=== PATIENT | male | born 1980 | race American Indian/Alaskan Native ===

== ENCOUNTER 2017-07-19 15:37 | Emergency (ER) | payer OTHER ==
[2017-07-19] MEDS ORDERED: DECADRON IM ONE (17:13)
[2017-07-19] MEDS ORDERED: TORADOL IM ONE (17:13)
--- NOTE | 2017-07-19 17:15 | Emergency Department Report ---
ED Back Pain/Injury HPI - General Chief Complaint: Back Pain/Injury Stated Complaint: BACK PAIN Time Seen by Provider: 07/19/17 17:05 Source: patient Mode of arrival: Ambulatory Limitations: No Limitations - History of Present Illness Initial Comments: Pt began to have R lower back pain radiating down leg after lifting at work last night. Denies trauma. Denies numbness, weakness but reports on and off tingling in R leg with shooting pains. Denies bowel or bladder dysfunction. MD Complaint: back pain -: Gradual, Last night Similar Symptoms Previously: Yes Place: work Radiation: right leg Severity: moderate Consistency: constant Improves With: immobilization Worsens With: movement Context: while lifting Associated Symptoms: denies other symptoms - Related Data Previous Rx's Medication Instructions Recorded Last Taken Type Cyclobenzaprine [Flexeril] 10 mg PO TID PRN #15 tablet 07/19/[address] [Voltaren Dr] 75 mg PO BID #20 tablet 07/19/17 Unknown Rx Allergies Allergy/AdvReac Type Severity Reaction Status Date / Time No Known Allergies Allergy Verified 07/19/17 15:45 ED Review of Systems ROS: Stated complaint: BACK PAIN Other details as noted in HPI Comment: All other systems reviewed and negative Constitutional: denies: chills, fever Eyes: denies: eye pain, eye discharge, vision change ENT: denies: ear pain, throat pain Respiratory: denies: cough, shortness of breath, wheezing Cardiovascular: denies: chest pain, palpitations Endocrine: no symptoms reported Gastrointestinal: denies: abdominal pain, nausea, diarrhea Genitourinary: denies: urgency, dysuria Musculoskeletal: back pain. denies: joint swelling, arthralgia Skin: denies: rash, lesions Neurological: denies: headache, weakness, paresthesias Psychiatric: denies: anxiety, depression Hematological/Lymphatic: denies: easy bleeding, easy bruising ED Back Pain Physical Exam - Exam General: Vital signs noted. No distress. Alert and acting appropriately. Back/Abdomen: Yes Perilumbar Tenderness, Yes Straight Leg Raise Pain (R), No Abdominal Tenderness, No Perithoracic Tenderness, No Sacroiliac Tenderness, No Flank Tenderness Neuro: Yes Normal Sensation, Yes Normal DTR's, Yes Normal Gait, No Motor Weakness ED Course Vital Signs 07/19/17 15:45 Temperature 98.5 F Pulse Rate 94 H Respiratory 16 Rate Blood Pressure 173/93 O2 Sat by Pulse 97 Oximetry - Reevaluation(s) Reevaluation #1: 07/19/17 17:12 Pt stable for d/c. ED Medical Decision Making - Medical Decision Making Pt presents with sciatic pain, no red flag s/sx. Will give Decadron and Toradol IM and have him follow up. Advised to monitor BP. - Differential Diagnosis sciatica, spasms, htn Critical care attestation.: If time is entered above; I have spent that time in minutes in the direct care of this critically ill patient, excluding procedure time. ED Disposition Clinical Impression: Low back pain with right-sided sciatica Qualifiers: Chronicity: acute Back pain laterality: right Qualified Code(s): M54.41 - Lumbago with sciatica, right side Disposition: TO HOME OR SELFCARE Is pt being admited?: No Condition: Good Instructions: Lumbar Radiculopathy (ED) Prescriptions: Cyclobenzaprine [Flexeril] 10 mg PO TID PRN #15 tablet PRN Reason: Muscle Spasm Diclofenac Dr [Voltaren Dr] 75 mg PO BID #20 tablet Referrals: MAGALIE MAYEN MD [Staff Physician] - 3-5 Days Forms: Work/School Release Form(ED) Time of Disposition: 17:14
[2017-07-19 18:04] VITALS: BP 148/86
== END 2017-07-19 18:01 | disposition home or self-care (01) ==
LOC: ED 15:37
DX: M54.41 Lumbago with sciatica, right side (principal)
CPT/HCPCS: 96372; 99282; J1100; J1885

== ENCOUNTER 2020-01-02 10:32 | Emergency (ER) | payer OTHER ==
[2020-01-02 10:50] VITALS: BP 181/110
--- NOTE | 2020-01-02 12:39 | Emergency Department Report ---
Minor Respiratory - HPI Chief Complaint: Upper Respiratory Infection Stated Complaint: SINUS INFECTION Time Seen by Provider: 01/02/20 11:36 Duration: 3 Days Minor Respiratory: Yes Able to Tolerate Fluids, Yes Cough, Yes Fever (2 days ago), No Sore Throat (only with cough) Other History: 39 y/o male comes in for nasal congestion, headache cough and sinus pressure times 3 days. Patient states he had a fever 2 days ago. Tried taking Allergra today which he reports has not helped. ED Review of Systems ROS: Stated complaint: SINUS INFECTION Other details as noted in HPI ED Past Medical Hx - Past Medical History Hx Seizures: Yes - Social History Smoking Status: Never Smoker Substance Use Type: None - Medications Home Medications: Home Medications Medication Instructions Recorded Confirmed Last Taken Type Cyclobenzaprine [Flexeril] 10 mg PO TID PRN #15 tablet 07/19/[address] [Voltaren Dr] 75 mg PO BID #20 tablet 07/19/17 Unknown Rx Fluticasone [Flonase] 1 spray NS QDAY #1 bottle 01/02/20 Unknown Rx cephALEXin [Keflex] 500 mg PO Q12HR 10 Days #20 cap 01/02/20 Unknown Rx Minor Respiratory Exam - Exam General: Vital signs noted. No distress. Alert and acting appropriately. HEENT: Yes Moist Mucous Membranes, Yes Rhinorrhea, Yes Frontal Tenderness, Yes Maxillary Tenderness, No Pharyngeal Erythema, No Pharyngeal Exudates Ear: Neither TM Bulge, Neither TM Erythema, Neither EAC Pain, Neither EAC Discharge Neck: No Adenopathy, No Supple Lungs: Yes Good Air Exchange, No Wheezes, No Ronchi, No Stridor, No Cough, No Labored Respirations, No Retractions, No Use of Accessory Muscles, No Other Abnormal Lung Sounds Heart: Yes Regular, No Murmur Abdomen: Yes Normal Bowel Sounds, No Tenderness, No Peritoneal Signs Neurologic: Alert and oriented, no deficits. Musculoskeletal: Unremarkable. ED Course Vital Signs 01/02/20 10:48 Temperature 99 F Pulse Rate 88 Respiratory 18 Rate Blood Pressure 181/110 O2 Sat by Pulse 99 Oximetry ED Medical Decision Making - Medical Decision Making 39 y/o male comes in for nasal congestion, headache cough and sinus pressure times 3 days. Patient states he had a fever 2 days ago. Tried taking Allergra today which he reports has not helped. Discharge on keflex and flonase for a sinus infection. Referral to PCP. Critical care attestation.: If time is entered above; I have spent that time in minutes in the direct care of this critically ill patient, excluding procedure time. ED Disposition Clinical Impression: Acute sinus infection Disposition: TO HOME OR SELFCARE Is pt being admited?: No Does the pt Need Aspirin: No Condition: Stable Instructions: Sinusitis (ED) Additional Instructions: Complete medication as precribed. Follow up with a Primary Care provider. Prescriptions: Fluticasone [Flonase] 1 spray NS QDAY #1 bottle cephALEXin [Keflex] 500 mg PO Q12HR 10 Days #20 cap Referrals: PRIMARY CARE, [Primary Care Provider] - 3-5 Days [facility] [Provider Group] - 3-5 Days Forms: Work/School Release Form(ED)
== END 2020-01-02 12:49 | disposition home or self-care (01) ==
LOC: ED 10:32
DX: J01.90 Acute sinusitis, unspecified (principal); R56.9 Unspecified convulsions; Z79.899 Other long term (current) drug therapy
CPT/HCPCS: 99282

== ENCOUNTER 2021-03-29 04:12 | Emergency (ER) | payer SELFPAY ==
[2021-03-29 04:18] VITALS: BP 201/113
--- NOTE | 2021-03-29 13:41 | Emergency Department Report ---
Blank Doc - Documentation Documentation: Went to see the patient in his room. Patient eloped.
== END 2021-03-29 13:35 | disposition left against medical advice (07) ==
LOC: ED 04:12
DX: T78.40XA Allergy, unspecified, initial encounter (principal); Z53.21 Procedure and treatment not carried out due to patient leaving prior to being seen by health care provider; X58.XXXA Exposure to other specified factors, initial encounter; Y93.89 Activity, other specified; Y92.89 Other specified places as the place of occurrence of the external cause; Y99.8 Other external cause status

== ENCOUNTER 2021-04-06 03:45 | Emergency (ER) | payer SELFPAY ==
[2021-04-06] MEDS ORDERED: predniSONE 20 MG TAB PO ONE (05:51)
[2021-04-06] MEDS ORDERED: IBUPROFEN 600 MG TAB PO ONE (05:51)
[2021-04-06] MEDS ORDERED: ACETAMINOPHEN 500 MG TAB PO ONE (05:51)
[2021-04-06] MEDS ORDERED: ONDANSETRON 4 MG ODT TAB PO ONE (05:51)
[2021-04-06] MEDS ORDERED: LIDOCAINE VISCOUS 2% 15 ML ORAL LIQD PO ONE (05:51)
--- NOTE | 2021-04-06 06:12 | Emergency Department Report ---
- General Chief Complaint: Sore Throat Stated Complaint: LIGHT HEADED SORE THROAT Source: patient Mode of arrival: Ambulatory Limitations: No Limitations - History of Present Illness Initial Comments: Patient is a 40-year-old -[place] male with a history of seizures who presents to the ED with complaint of acute onset persistent diffuse body aches and pains, nasal and sinus congestion, frontal sinus pressure and headache, subjective fever and chills, persistent sore throat with dysphagia, and lack of appetite with persistent dry cough for the last 3 days, worse in the last 24 hours. Patient states that he has been taking [id number] medications with no relief. Patient states that no one else at home or at work has had similar symptoms but adds that he has been fully vaccinated against COVID-19. Patient denies dizziness, syncope, chest pain, shortness of breath, abdominal pain, nausea, vomiting, diarrhea, dysuria, urinary frequency and urgency or change in vision and neck pain. MD Complaint: fever, cough, sore throat, rhinorrhea, nasal congestion, sinus pain, other (Diffuse body aches and pains) -: Sudden, days(s) (3) Severity: severe Severity scale (0 -10): 8 Quality: sharp, aching Consistency: constant Improves With: nothing Worsens With: nothing Associated Symptoms: denies other symptoms, fever, chills, myalgias, headache, rhinorrhea, nasal congestion, sore throat, cough. denies: diaphoresis, stiff neck, chest pain, shortness of breath, abdominal pain, nausea, vomiting, diarrhea, dysuria, rash, right sweats, weight loss, hoarseness, ear pain, other Treatments Prior to Arrival: "cold medicine" - Related Data Previous Rx's Medication Instructions Recorded Last Taken Type Cyclobenzaprine [Flexeril] 10 mg PO TID PRN #15 tablet 07/19/[address] [Voltaren Dr] 75 mg PO BID #20 tablet 07/19/17 Unknown Rx Fluticasone [Flonase] 1 spray NS QDAY #1 bottle 01/02/20 Unknown Rx cephALEXin [Keflex] 500 mg PO Q12HR 10 Days #20 cap 01/02/20 Unknown Rx Azithromycin [Zithromax Z-ALEXANDRO] 250 mg PO DAILY #6 04/06/21 Unknown Rx Benzonatate [Tessalon Perles] 100 mg PO Q8HR #30 cap 04/06/21 Unknown Rx Cetirizine HCl [Zyrtec 10mg tab] 10 mg PO DAILY #30 04/06/21 Unknown Rx Ibuprofen [Motrin] 800 mg PO Q8HR PRN #30 tablet 04/06/21 Unknown Rx Lidocaine Viscous 2% 10 ml PO Q6H PRN #120 ml 04/06/21 Unknown Rx predniSONE [Deltasone] 40 mg PO QDAY #10 tab 04/06/21 Unknown Rx Allergies Allergy/AdvReac Type Severity Reaction Status Date / Time No Known Allergies Allergy Verified 01/02/20 10:46 ED Review of Systems ROS: Stated complaint: LIGHT HEADED SORE THROAT Other details as noted in HPI Constitutional: chills, fever, malaise, weakness Eyes: denies: eye pain, eye discharge, vision change ENT: throat pain, congestion. denies: ear pain Respiratory: cough. denies: shortness of breath, wheezing Cardiovascular: denies: chest pain, palpitations Endocrine: no symptoms reported Gastrointestinal: denies: abdominal pain, nausea, vomiting, diarrhea Genitourinary: denies: urgency, dysuria Musculoskeletal: denies: back pain, joint swelling, arthralgia Skin: denies: rash, lesions Neurological: headache. denies: weakness, paresthesias Psychiatric: denies: anxiety, depression Hematological/Lymphatic: denies: easy bleeding, easy bruising ED Past Medical Hx - Past Medical History Previous Medical History?: Yes Hx Seizures: Yes - Surgical History Past Surgical History?: No - Social History Smoking Status: Never Smoker Substance Use Type: None - Medications Home Medications: Home Medications Medication Instructions Recorded Confirmed Last Taken Type Cyclobenzaprine [Flexeril] 10 mg PO TID PRN #15 tablet 07/19/[address] [Voltaren Dr] 75 mg PO BID #20 tablet 07/19/17 Unknown Rx Fluticasone [Flonase] 1 spray NS QDAY #1 bottle 01/02/20 Unknown Rx cephALEXin [Keflex] 500 mg PO Q12HR 10 Days #20 cap 01/02/20 Unknown Rx Azithromycin [Zithromax Z-ALEXANDRO] 250 mg PO DAILY #6 04/06/21 Unknown Rx Benzonatate [Tessalon Perles] 100 mg PO Q8HR #30 cap 04/06/21 Unknown Rx Cetirizine HCl [Zyrtec 10mg tab] 10 mg PO DAILY #30 04/06/21 Unknown Rx Ibuprofen [Motrin] 800 mg PO Q8HR PRN #30 tablet 04/06/21 Unknown Rx Lidocaine Viscous 2% 10 ml PO Q6H PRN #120 ml 04/06/21 Unknown Rx predniSONE [Deltasone] 40 mg PO QDAY #10 tab 04/06/21 Unknown Rx ED Physical Exam - General Limitations: No Limitations General appearance: alert, in no apparent distress - Head Head exam: Present: atraumatic, normocephalic, normal inspection - Eye Eye exam: Present: normal appearance, PERRL, EOMI Pupils: Present: normal accommodation - ENT ENT exam: Present: mucous membranes moist, TM's normal bilaterally, normal external ear exam, other (Grossly congested nasal passages, palpable frontal sinus tenderness; mild erythematous oropharynx and tonsils, no exudates or sign of peritonsillar abscess) - Neck Neck exam: Present: normal inspection, full ROM. Absent: tenderness, lymphadenopathy, thyromegaly - Respiratory Respiratory exam: Present: normal lung sounds bilaterally. Absent: respiratory distress, wheezes, rhonchi, stridor, chest wall tenderness, accessory muscle use, decreased breath sounds, prolonged expiratory - Cardiovascular Cardiovascular Exam: Present: regular rate, normal rhythm, normal heart sounds. Absent: systolic murmur, diastolic murmur, rubs, gallop - GI/Abdominal GI/Abdominal exam: Present: soft, normal bowel sounds. Absent: tenderness, guarding, rebound, hyperactive bowel sounds, hypoactive bowel sounds, organomegaly, mass - Extremities Exam Extremities exam: Present: normal inspection, full ROM, normal capillary refill - Back Exam Back exam: Present: normal inspection, full ROM. Absent: tenderness, CVA tenderness (R), CVA tenderness (L), muscle spasm, paraspinal tenderness, vertebral tenderness - Neurological Exam Neurological exam: Present: alert, oriented X3, CN II-XII intact, normal gait, reflexes normal - Psychiatric Psychiatric exam: Present: normal affect, normal mood - Skin Skin exam: Present: warm, dry, intact, normal color. Absent: rash ED Course Vital Signs 04/06/21 04/06/21 03:48 06:18 Temperature 99.1 F Pulse Rate 103 H 92 H Respiratory 18 Rate Blood Pressure 195/117 O2 Sat by Pulse 98 100 Oximetry ED Medical Decision Making - Radiology Data Radiology results: report reviewed, image reviewed [facility] [address] [place] [address] XRay Report Signed Patient: TANMAY HOOK MR#: [id number] : 1980 Acct:[id number] Age/Sex: 40 / M ADM Date: 04/06/21 Loc: ED Attending Dr: Ordering Physician: ALYSON ABBASI Date of Service: 04/06/21 Procedure(s): XR chest 1V ap Accession Number(s): [id number] cc: ALYSON ABBASI Fluoro Time In Minutes: CHEST 1 VIEW INDICATION / CLINICAL INFORMATION: COUGH, FEVER, BODY ACHES. COMPARISON: None available. FINDINGS: SUPPORT DEVICES: None. HEART / MEDIASTINUM: No significant abnormality. LUNGS / PLEURA: There is mild interstitial prominence bilaterally. Possibility of viral pneumonia should be considered. No focal consolidation or pleural effusion. No pneumothorax. ADDITIONAL FINDINGS: No significant additional findings. IMPRESSION: 1. Interstitial prominence bilaterally, nonspecific. Please correlate with patient's Covid status, as appearance could be due to viral pneumonia.. Signer Name: Vanesa Lunsford MD Signed: 04/06/2021 6:10 AM Workstation Name: [id number] Transcribed By: JR Dictated By: Vanesa Lunsford MD Electronically Authenticated By: Vanesa Lunsford MD Signed Date/Time: 04/06/21609 DD/ 8 TD/TT: Print - Medical Decision Making This is a 40-year-old -[place] male with a history of seizures who presents to the ED with complaint of acute onset persistent diffuse body aches and pains, nasal and sinus congestion, frontal sinus pressure and headache, subjective fever and chills, persistent sore throat with dysphagia, and lack of appetite with persistent dry cough for the last 3 days, worse in the last 24 hours. Patient states that he has been taking [id number] medications with no relief. Patient states that no one else at home or at work has had similar symptoms but adds that he has been being fully vaccinated against COVID-19. In the ED, patient is alert and oriented x3 and is not in any distress. Patient was treated in the ED for pain, and chest x-ray showed no acute cardiopulmonary abnormalities or pneumonitis. On reevaluation, patient's pain is well controlled medication. Patient was discharged home on medications and advised to follow-up with his primary care physician in 7 to 10 days for reevaluation. Patient advised return to the ED immediately if symptoms get worse. - Differential Diagnosis URI; sinusitis; strep pharyngitis; pneumonia; bronchitis; influenza Critical care attestation.: If time is entered above; I have spent that time in minutes in the direct care of this critically ill patient, excluding procedure time. ED Disposition Clinical Impression: Acute upper respiratory infection Acute bronchitis Qualifiers: Bronchitis organism: other organism Qualified Code(s): J20.8 - Acute bronchitis due to other specified organisms Acute frontal sinusitis, unspecified Qualifiers: Recurrence: non-recurrent Qualified Code(s): J01.10 - Acute frontal sinusitis, unspecified Acute pharyngitis Qualifiers: Pharyngitis/tonsillitis etiology: unspecified etiology Qualified Code(s): J02.9 - Acute pharyngitis, unspecified Disposition: 01 HOME / SELF CARE / HOMELESS Is pt being admited?: No Does the pt Need Aspirin: No Condition: Stable Instructions: Cough, Adult, [id number], Sinusitis, Adult, [id number], Acute Bronchitis, Adult, Qooz-[id number], Upper Respiratory Infection, Adult, [id number], Pharyngitis, [id number], Acute Bronchitis (ED) Additional Instructions: Chest x-ray showed no acute cardiopulmonary abnormalities or pneumonitis. Therefore take medication with food, drink plenty of fluids and follow-up with your primary care physician in 5 to 7 days for reevaluation. Return to the ED immediately if symptoms get worse. Prescriptions: predniSONE [Deltasone] 40 mg PO QDAY #10 tab Lidocaine Viscous 2% 10 ml PO Q6H PRN #120 ml PRN Reason: Sore Throat Ibuprofen [Motrin] 800 mg PO Q8HR PRN #30 tablet PRN Reason: Pain or fever Benzonatate [Tessalon Perles] 100 mg PO Q8HR #30 cap Azithromycin [Zithromax Z-ALEXANDRO] 250 mg PO DAILY #6 Cetirizine HCl [Zyrtec 10mg tab] 10 mg PO DAILY #30 Referrals: [facility] [Provider Group] - 7-10 days Forms: Work/School Release Form(ED) Time of Disposition: 06:14 Print Language: GERMAN
--- NOTE | 2021-04-06 06:15 | XRay Report ---
CHEST 1 VIEW INDICATION / CLINICAL INFORMATION: COUGH, FEVER, BODY ACHES. COMPARISON: None available. FINDINGS: SUPPORT DEVICES: None. HEART / MEDIASTINUM: No significant abnormality. LUNGS / PLEURA: There is mild interstitial prominence bilaterally. Possibility of viral pneumonia tray uld be considered. No focal consolidation or pleural effusion. No pneumothorax. ADDITIONAL FINDINGS: No significant additional findings. IMPRESSION: 1. Interstitial prominence bilaterally, nonspecific. Please correlate with patient's Covid status, as appearance could be due to viral pneumonia.. Signer Name: Vanesa Lunsford MD Signed: 04/06/2021 6:10 AM Workstation Name: [id number]
[2021-04-06 07:34] VITALS: BP 152/89
== END 2021-04-06 07:34 | disposition home or self-care (01) ==
LOC: ED 03:45
DX: J06.9 Acute upper respiratory infection, unspecified (principal); J20.8 Acute bronchitis due to other specified organisms; J01.10 Acute frontal sinusitis, unspecified; J02.9 Acute pharyngitis, unspecified
CPT/HCPCS: 71045; 99283; J7512; J3490; Q0162

== ENCOUNTER 2021-04-07 18:02 | Emergency (ER) | payer SELFPAY ==
[2021-04-08 03:09] VITALS: BP 144/78
--- NOTE | 2021-04-08 03:32 | Emergency Department Report ---
ED General Adult HPI - General Chief complaint: Chest Pain Stated complaint: CHEST PAIN Time Seen by Provider: 04/08/21 03:28 Source: EMS Mode of arrival: Stretcher Limitations: No Limitations - History of Present Illness Initial comments: Patient had presented with a chief complaint of chest pain, although he denies chest pain. Patient states that he was here by ambulance because he had hives. [place]. He noticed that he had hives on his skin and thought he was having allergic reaction. He is not sure what he could have been reacting to. The hives have since abated. He did report having subjective fevers and chills with cough and congestion. He stated that he is also having some burning pain in the right lateral neck area. He was not sure what to do. He has no complaints regarding vomiting or diarrhea. There has been no change in food or laundry soap. He has had no known allergen exposure. Severity scale (0 -10): 7 - Related Data Previous Rx's Medication Instructions Recorded Last Taken Type Cyclobenzaprine [Flexeril] 10 mg PO TID PRN #15 tablet 07/19/[address] [Voltaren Dr] 75 mg PO BID #20 tablet 07/19/17 Unknown Rx Fluticasone [Flonase] 1 spray NS QDAY #1 bottle 01/02/20 Unknown Rx cephALEXin [Keflex] 500 mg PO Q12HR 10 Days #20 cap 01/02/20 Unknown Rx Azithromycin [Zithromax Z-ALEXADNRO] 250 mg PO DAILY #6 04/06/21 Unknown Rx Benzonatate [Tessalon Perles] 100 mg PO Q8HR #30 cap 04/06/21 Unknown Rx Cetirizine HCl [Zyrtec 10mg tab] 10 mg PO DAILY #30 04/06/21 Unknown Rx Ibuprofen [Motrin] 800 mg PO Q8HR PRN #30 tablet 04/06/21 Unknown Rx Lidocaine Viscous 2% 10 ml PO Q6H PRN #120 ml 04/06/21 Unknown Rx predniSONE [Deltasone] 40 mg PO QDAY #10 tab 04/06/21 Unknown Rx Allergies Allergy/AdvReac Type Severity Reaction Status Date / Time No Known Allergies Allergy Verified 01/02/20 10:46 ED Review of Systems ROS: Stated complaint: CHEST PAIN Other details as noted in HPI Comment: All other systems reviewed and negative Constitutional: chills, fever Eyes: denies: vision change ENT: throat pain Respiratory: cough Cardiovascular: denies: chest pain Endocrine: denies: unexplained weight loss Gastrointestinal: denies: vomiting Genitourinary: denies: dysuria Musculoskeletal: denies: back pain Skin: as per HPI Neurological: denies: headache Hematological/Lymphatic: denies: easy bruising ED Past Medical Hx - Past Medical History Hx Seizures: Yes - Family History Family history: no significant - Social History Smoking Status: Never Smoker Substance Use Type: None - Medications Home Medications: Home Medications Medication Instructions Recorded Confirmed Last Taken Type Cyclobenzaprine [Flexeril] 10 mg PO TID PRN #15 tablet 07/19/[address] [Voltaren Dr] 75 mg PO BID #20 tablet 07/19/17 Unknown Rx Fluticasone [Flonase] 1 spray NS QDAY #1 bottle 01/02/20 Unknown Rx cephALEXin [Keflex] 500 mg PO Q12HR 10 Days #20 cap 01/02/20 Unknown Rx Azithromycin [Zithromax Z-ALEXANDRO] 250 mg PO DAILY #6 04/06/21 Unknown Rx Benzonatate [Tessalon Perles] 100 mg PO Q8HR #30 cap 04/06/21 Unknown Rx Cetirizine HCl [Zyrtec 10mg tab] 10 mg PO DAILY #30 04/06/21 Unknown Rx Ibuprofen [Motrin] 800 mg PO Q8HR PRN #30 tablet 04/06/21 Unknown Rx Lidocaine Viscous 2% 10 ml PO Q6H PRN #120 ml 04/06/21 Unknown Rx predniSONE [Deltasone] 40 mg PO QDAY #10 tab 04/06/21 Unknown Rx ED Physical Exam - General Limitations: No Limitations, Other (Pulse ox noted and normal) General appearance: alert, in no apparent distress - Head Head exam: Present: atraumatic, normocephalic - Eye Eye exam: Present: normal appearance, EOMI - ENT ENT exam: Present: normal orophraynx, normal external ear exam - Neck Neck exam: Present: normal inspection. Absent: meningismus - Respiratory Respiratory exam: Present: normal lung sounds bilaterally. Absent: respiratory distress - Cardiovascular Cardiovascular Exam: Present: regular rate, normal rhythm - GI/Abdominal GI/Abdominal exam: Present: other (Obese) - Extremities Exam Extremities exam: Present: normal capillary refill - Back Exam Back exam: Present: full ROM - Neurological Exam Neurological exam: Present: alert, oriented X3, CN II-XII intact, normal gait - Psychiatric Psychiatric exam: Present: normal affect, normal mood - Skin Skin exam: Present: warm, dry, other (No rash noted) ED Course Vital Signs 04/07/21 04/08/21 18:04 03:08 Temperature 103.2 F H 98.9 F Pulse Rate 139 H 99 H Respiratory 22 18 Rate Blood Pressure 189/102 144/78 [Left] O2 Sat by Pulse 100 97 Oximetry - Reevaluation(s) Reevaluation #1: 04/08/21 03:31 Vitals have been repeated per verbal report from the nurse. He was no longer febrile and no longer tachycardic. Patient was discharged. ED Medical Decision Making - Medical Decision Making Patient presented with report of chest pain, but denies chest pain to me multiple times. He denied chest pain to the nurse. His complaint to us was that of a rash and then neck pain. He does not have a visible rash at this time. He certainly could have had hives that resolved. He has some anterior ce rvical lymphadenopathy in the right neck which would be the cause for his pain. He was treated symptomatically and discharged. He is not having chest pain. There was no adventitious breath sounds to suggest pneumonia. He did not have any evidence of airway compromise. Critical Care Time: No Critical care attestation.: If time is entered above; I have spent that time in minutes in the direct care of this critically ill patient, excluding procedure time. ED Disposition Clinical Impression: Hives, Lymphadenopathy of right cervical region Disposition: HOME / SELF CARE / HOMELESS Is pt being admited?: No Condition: Stable Instructions: Rash, Adult Additional Instructions: Take your medications as previously prescribed. Use Benadryl for itching and hives. Follow-up with your regular doctor. Return for problems. Referrals: PRIMARY MD DELPHINE [Primary Care Provider] - 3-5 Days STARLA GIORDANO MD [Staff Physician] - 3-5 Days
== END 2021-04-08 04:00 | disposition home or self-care (01) ==
LOC: ED 18:02
DX: L50.9 Urticaria, unspecified (principal); R59.1 Generalized enlarged lymph nodes
CPT/HCPCS: 99283